=== PATIENT | male | born 1965 ===

== ENCOUNTER 2017-01-09 11:12 | Emergency (ER) | payer MEDICAID ==
[2017-01-09 11:14] VITALS: TEMP 97.7
[2017-01-09 11:15] VITALS: BMI 29.6
[2017-01-09 11:22] VITALS: BP 116/86; PULSE 62; RESP 16; O2SAT 98
[2017-01-09] MEDS ORDERED: Sodium Chloride 0.9% 1,000 ML IV STA ×2 (11:29→14:20)
--- NOTE | 2017-01-09 11:33 | ED PDOC ---
HPI: General Adult Time Seen by Provider: 01/09/17 11:20 Chief Complaint (Nursing): GI Problem History Per: Patient Additional Complaint(s): Pt. states he woke up this morning feeling dizzy and weak. Pt. had 1 episode of non-bloody vomiting. Pt. was seen in [facility] and was subsequently sent to ED as his BS was elevated and he had ketones in his urine. Pt. states he is compliant with his DM meds and reports he is not insulin dependent. Denies SOB, numbness, tingling, chest pain, SOB, abdominal pain. Of note, pt. states he had 2 episodes of non-bloody watery diarrhea today but reports this has been on going for the past 6 months. Against Medical Advice - AMA Patient Left Against Medical Advice: The patient declines admission to the hospital and wishes to leave the Emergency Department. This action is against my medical advice. This decision was made with informed refusal. The patient was told that admission to the hospital is necessary. Explanation of the reasons why were discussed. The risks of leaving were explained to the patient and include, but are not limited to, worsening of known or currently unknown conditions, permanent disability and from undiagnosed or untreated conditions. The patient has the capacity to make this informed decision and understands my explanation of the current medical problem and risks of leaving. The patient voluntarily accepts these risks and signed an AMA form documenting our conversation. The patient was given the opportunity to ask questions and reconsider. The patient was encouraged to return to the Emergency Department at any time for further care. 01/09/17 14:47 manager procurement #[id number] (Gil Esposito) to explain risks and implications of signing out AMA. Pt. states he has 5 animals to take care of at home. Pt. states he does feel slightly better. Past Medical History Vital Signs: Last Vital Signs Temp 97.7 F 01/09/17 11:19 Pulse 62 01/09/17 11:19 Resp 16 01/09/17 11:19 BP 116/86 01/09/17 11:19 Pulse Ox 98 01/09/17 14:47 - Medical History PMH: Depression, Diabetes, Fibromyalgia, HTN, Hypercholesterolemia Denies: Chronic Kidney Disease - Surgical History Surgical History: Cholecystectomy - Family History Family History: States: No Known Family Hx - Home Medications Home Medications: Ambulatory Orders Medication Instructions Recorded Baclofen [Lioresal] 10 mg PO BID 09/06/15 Gabapentin [Neurontin] 600 mg PO QID 09/06/15 GlipiZIDE [Glucotrol] 5 mg PO DAILY 09/06/15 MetFORMIN [glucOPHAGE] 1,000 mg PO BID 09/06/15 Omeprazole [Prilosec] 20 mg PO DAILY 09/06/15 Paroxetine HCl [Paxil] 40 mg PO DAILY 09/06/15 Simvastatin [Zocor] 40 mg PO DAILY 09/06/15 Aspirin [Ecotrin] 81 mg PO DAILY 01/09/17 Bupropion HCl [Wellbutrin Sr] 100 mg PO DAILY 01/09/17 Doxepin [Sinequan] 50 mg PO HS 01/09/17 Enalapril Maleate [Vasotec] 10 mg PO DAILY 01/09/17 Meloxicam [Mobic] 15 mg PO DAILY PRN 01/09/17 [place]-3 Fatty Acids/Fish Oil [Fish 1 cap PO DAILY 01/09/17 Oil 1,000 mg Capsule] Risperidone [Risperdal] 3 mg PO DAILY 01/09/17 Zolpidem [Ambien] 10 mg PO HS PRN 01/09/17 - Allergies Allergies/Adverse Reactions: Allergies Allergy/AdvReac Type Severity Reaction Status Date / Time No Known Allergies Allergy Verified 01/09/17 11:19 Review of Systems ROS Statement: Except As Marked, All Systems Reviewed And Found Negative Neurological: Positive for: Weakness Physical Exam - Reviewed Nursing Documentation Reviewed: Yes Vital Signs Reviewed: Yes - Physical Exam Appears: Positive for: Well, Non-toxic, No Acute Distress Head Exam: Positive for: ATRAUMATIC, NORMAL INSPECTION, NORMOCEPHALIC Skin: Positive for: Normal Color, Warm. Negative for: Rash Eye Exam: Positive for: EOMI, Normal appearance, PERRL ENT: Positive for: Normal ENT Inspection Neck: Positive for: Normal, Painless ROM Cardiovascular/Chest: Positive for: Regular Rate, Rhythm Respiratory: Positive for: CNT, Normal Breath Sounds Gastrointestinal/Abdominal: Positive for: Normal Exam, Bowel Sounds, Soft. Negative for: Tenderness Back: Positive for: Normal Inspection Extremity: Positive for: Normal ROM Neurologic/Psych: Positive for: Alert, Oriented, Other (equal activity director strength b/l) . Negative for: Motor/Sensory Deficits, Aphasia, Facial Droop - Laboratory Results Result Diagrams: 01/09/17 11:55 01/09/17 11:55 - ECG ECG: Positive for: Interpreted By Me ECG Rhythm: Positive for: Sinus Rhythm Rate: 62 O2 Sat by Pulse Oximetry: 98 - Radiology X-Ray: Read By Radiologist (CXR) X-Ray Interpretation: No Acute Disease - CT Scan/US CT head w/o contrast Other Rad Studies (CT/US): Radiology Report Reviewed (negative) - Progress ED Course And Treament: Labs ordered. IV NS bolus x [address] head w/o contrast ordered. FSBS: [id number] FSBS: 282 Disposition - Clinical Impression Clinical Impression: Left against medical advice, Hyperglycemia, Ketonuria - Patient ED Disposition Is Patient to be Admitted: No - Disposition Referrals: [facility] [Outside] [facility] [Outside] Disposition: Against Medical Advice Disposition Time: 14:45 Condition: GUARDED Additional Instructions: RETURN TO ED IMMEDIATELY IF SYMPTOMS PERSIST OR WORSEN. Instructions: Acute Nausea and Vomiting (ED), Against Medical Advice (ED), Diabetic Hyperglycemia (ED) Forms: [facility] (Dutch) Print Language: ERITREAN
--- NOTE | 2017-01-09 12:01 | RAD ---
HISTORY: weakness COMPARISON: None available TECHNIQUE: Chest, one view. FINDINGS: Examination limited by habitus. LUNGS: No focal consolidation. Please note that chest x-ray has limited sensitivity for the detection of pulmonary masses. PLEURA: No significant pleural effusion identified. No definite pneumothorax . CARDIOVASCULAR: The cardiomediastinal silhouette appears within normal limits of size. OSSEOUS STRUCTURES: No acute osseous abnormality identified. VISUALIZED UPPER ABDOMEN: Unremarkable. OTHER FINDINGS: None. IMPRESSION: No focal consolidation, significant pleural effusion, or definite pneumothorax identified.
[2017-01-09 12:04] LABS: BASO % 0.4 % (0.0-2.0); EOS # 0.1 K/uL (0.0-0.7); EOS % 0.7 % (0.0-4.0); HEMATOCRIT 46.3 % (35.0-51.0); LYMPH % 8.9 % (20.0-40.0); MEAN CELL VOLUME 96.1 fl (80.0-94.0); MEAN CORPUSCULAR HEMOGLOBIN 32.2 pg (27.0-31.0); MEAN CORPUSCULAR HGB CONC 33.5 g/dL (33.0-37.0); MEAN PLATELET VOLUME 9.3 fl (7.2-11.7); MONO # 0.5 K/uL (0.0-0.8); MONO % 4.6 % (0.0-10.0); NEUT # 9.4 K/uL (1.8-7.0); NEUT % 85.4 % (50.0-75.0); NRBC % 0.1 % (0.0-0.0); PLATELET COUNT 237 K/uL (130-400); RED CELL DISTRIBUTION WIDTH 12.6 % (11.5-14.5)
[2017-01-09 12:20] LABS: ALB/GLOB RATIO 1.7 (1.0-2.1); ALKALINE PHOSPHATASE 81 U/L (38-126); ALT/SGPT 44 U/L (21-72); AST/SGOT 19 U/L (17-59); BLOOD UREA NITROGEN 20 mg/dl (9-20); CALCIUM 9.3 mg/dL (8.4-10.2); CARBON DIOXIDE 23 mmol/L (22-30); CHLORIDE 100 mmol/L (98-107); GFR AFRICAN-AMERICAN > 60; GLUCOSE,RANDOM 309 mg/dL (75-110); POTASSIUM 4.3 MMOL/L (3.6-5.0); SODIUM 136 mmol/l (132-148); TOTAL PROTEIN 7.3 G/DL (6.3-8.2)
[2017-01-09 12:41] LABS: NEUTROPHIL 82 % (42-75); TOTAL CELLS COUNTED 100
[2017-01-09 12:48] LABS: VENOUS BLOOD GAS BASE EXCESS 1.5 mmol/L (0.0-2.0); VENOUS BLOOD GAS PCO2 43 mmHg (40-60)
--- NOTE | 2017-01-09 13:01 | CT ---
PROCEDURE: CT HEAD WITHOUT CONTRAST. HISTORY: dizziness COMPARISON: None available. TECHNIQUE: Axial computed tomography images were obtained through the head/brain without intravenous contrast. Radiation dose: Total exam DLP = 803.65 mGy-cm. This CT exam was performed using one or more of the following dose reduction techniques: Automated exposure control, adjustment of the mA and/or kV according to patient size, and/or use of iterative reconstruction technique. FINDINGS: HEMORRHAGE: No intracranial hemorrhage. BRAIN: No mass effect or edema. The smith-white matter differentiation appears intact. Please note that MRI with diffusion imaging is more sensitive in the detection of acute ischemic event. VENTRICLES: No hydrocephalus. CALVARIUM: Unremarkable. PARANASAL SINUSES: Unremarkable as visualized. No significant inflammatory changes. MASTOID AIR CELLS: Unremarkable as visualized. No inflammatory changes. OTHER FINDINGS: None. IMPRESSION: No acute intracranial pathology identified.
[2017-01-09 13:21] LABS: RBC URINE 2 /hpf (0-3); URINE BILIRUBIN NEGATIVE (NEGATIVE); URINE BLOOD NEGATIVE (NEGATIVE); URINE COLOR YELLOW (YELLOW); URINE GLUCOSE (UA) >=500 mg/dL (Normal); URINE KETONE 20 mg/dL (NEGATIVE); URINE LEUKOCYTE ESTERASE NEG Leu/uL (Negative); URINE PROTEIN NEGATIVE (NEGATIVE); URINE UROBILINOGEN 0.2-1.0 mg/dL (0.2-1.0); WBC URINE 1 /hpf (0-5)
--- NOTE | 2017-01-09 17:40 | CARD ---
APPROVED REPORT EKG Measurement Heart [id number] CO [id number] <Conclusion> Normal sinus rhythm Left axis deviation Minimal voltage criteria for LVH, may be normal variant Abnormal ECG
== END 2017-01-09 14:54 | disposition left against medical advice (07) ==
LOC: H.ER 11:12
DX: E11.65 Type 2 diabetes mellitus with hyperglycemia (principal); R82.4 Acetonuria; E78.00 Pure hypercholesterolemia, unspecified; F32.9 Major depressive disorder, single episode, unspecified; I10 Essential (primary) hypertension; M79.7 Fibromyalgia; Z79.82 Long term (current) use of aspirin; Z79.84 Long term (current) use of oral hypoglycemic drugs

== ENCOUNTER 2017-09-24 16:33 | Emergency (ER) | payer MEDICAID ==
[2017-09-24 16:33] VITALS: BMI 29.6
[2017-09-24 16:58] VITALS: O2SAT 99
--- NOTE | 2017-09-24 17:20 | ED PDOC ---
HPI: General Adult Time Seen by Provider: 09/24/17 17:17 Chief Complaint (Nursing): Abnormal Skin Integrity Chief Complaint (Provider): abd pain History Per: Patient Additional Complaint(s): 52-year-old male with history of diabetes, hypertension and high cholesterol presents to emergency department with painful umbilicus region of abdomen 2 days. Patient was seen at clinic today and was referred to emergency room for further evaluation. Patient has had purulent discharge from umbilical region but denies fever or chills. He rates pain as a 7 out of 10. No associated nausea , vomiting, diarrhea or constipation. PMD: Dr. Escoto Past Medical History Reviewed: Historical Data, Nursing Documentation, Vital Signs Vital Signs: Last Vital Signs Temp 98.3 F 09/24/17 16:56 Pulse 68 09/24/17 16:56 Resp 18 09/24/17 16:56 BP 109/69 09/24/17 16:56 Pulse Ox 99 09/24/17 19:29 - Medical History PMH: Depression, Diabetes, Fibromyalgia, HTN, Hypercholesterolemia - Surgical History Surgical History: Cholecystectomy - Family History Family History: States: No Known Family Hx - Living Arrangements Living Arrangements: With Family - Social History Current smoker - smoking cessation education provided: No Alcohol: None Drugs: Denies - Home Medications Home Medications: Ambulatory Orders Medication Instructions Recorded Baclofen [Lioresal] 10 mg PO BID 09/06/15 Gabapentin [Neurontin] 600 mg PO QID 09/06/15 GlipiZIDE [Glucotrol] 5 mg PO DAILY 09/06/15 MetFORMIN [glucOPHAGE] 1,000 mg PO BID 09/06/15 Omeprazole [Prilosec] 20 mg PO DAILY 09/06/15 Paroxetine HCl [Paxil] 40 mg PO DAILY 09/06/15 Simvastatin [Zocor] 40 mg PO DAILY 09/06/15 Aspirin [Ecotrin] 81 mg PO DAILY 01/09/17 Bupropion HCl [Wellbutrin Sr] 100 mg PO DAILY 01/09/17 Doxepin [Sinequan] 50 mg PO HS 01/09/17 Enalapril Maleate [Vasotec] 10 mg PO DAILY 01/09/17 Meloxicam [Mobic] 15 mg PO DAILY PRN 01/09/17 [place]-3 Fatty Acids/Fish Oil [Fish 1 cap PO DAILY 01/09/17 Oil 1,000 mg Capsule] Risperidone [Risperdal] 3 mg PO DAILY 01/09/17 Zolpidem [Ambien] 10 mg PO HS PRN 01/09/17 - Allergies Allergies/Adverse Reactions: Allergies Allergy/AdvReac Type Severity Reaction Status Date / Time No Known Allergies Allergy Verified 01/09/17 11:19 Review of Systems ROS Statement: Except As Marked, All Systems Reviewed And Found Negative Constitutional: Negative for: Fever, Chills Cardiovascular: Negative for: Chest Pain Respiratory: Negative for: Cough Gastrointestinal: Positive for: Abdominal Pain (purulent discharge from umbilical region). Negative for: Nausea, Vomiting, Diarrhea, Constipation, Melena, Hematochezia, Hematemesis, Rectal Pain Genitourinary Male: Negative for: Dysuria Physical Exam - Reviewed Nursing Documentation Reviewed: Yes Vital Signs Reviewed: Yes - Physical Exam Appears: Positive for: Well, Non-toxic, No Acute Distress Skin: Negative for: Rash Eye Exam: Positive for: Normal appearance Cardiovascular/Chest: Positive for: Regular Rate, Rhythm Respiratory: Positive for: Normal Breath Sounds Gastrointestinal/Abdominal: Positive for: Tenderness (to umbilical region), Other (Erythema noted to umbilical region, no active drainage noted). Negative for: Distended, Guarding, Rebound Back: Negative for: L CVA Tenderness, R CVA Tenderness Extremity: Positive for: Normal ROM Neurologic/Psych: Positive for: Alert, Oriented - Laboratory Results Result Diagrams: 09/24/17 18:05 09/24/17 18:05 Urine dip results: Negative for: Leukocyte Esterase, Blood, Nitrate, Ketones, Glucose, Bilirubin, Protein - ECG O2 Sat by Pulse Oximetry: 99 Pulse Ox Interpretation: Normal Medical Decision Making Medical Decision Makin52 year old with umbilical pain and discharge, sent by clinic to ED Plan: CBC CMP Urine dip Blood cultures IVF CT abd and pelvis with IV contrast Pain meds declined Disposition - Clinical Impression Clinical Impression: Umbilical pain - Patient ED Disposition Is Patient to be Admitted: Transfer of Care - Disposition Disposition: Transfer of Care Disposition Time: 20:00 Condition: STABLE Forms: [facility] (Welsh) Patient Signed Over To: Geno Kelly Handoff Comments: Pending CT and final disposition Results - Lab Results Lab Results: 09/24/17 09/24/17 18:05 18:05 WBC 7.5 RBC 4.59 Hgb 14.9 Hct 44.3 MCV 96.6 H MCH 32.5 H MCHC 33.6 RDW 12.5 Plt Count 232 MPV 9.4 Neut % (Auto) 62.3 Lymph % (Auto) 27.4 [place] % (Auto) 6.7 Eos % (Auto) 2.6 Baso % (Auto) 1.0 Neut # (Auto) 4.7 Lymph # (Auto) 2.0 [place] # (Auto) 0.5 Eos # (Auto) 0.2 Baso # (Auto) 0.1 Sodium 141 Potassium 4.3 Chloride 99 Carbon Dioxide 26 Anion Gap 20 BUN 19 Creatinine 1.0 Est GFR ( Amer) > 60 Est GFR (Non-Af Amer) > 60 Random Glucose 90 Calcium 9.3 Total Bilirubin 3.1 H AST 22 ALT 36 Alkaline Phosphatase 68 Total Protein 7.7 Albumin 4.4 Globulin 3.3 Albumin/Globulin Ratio 1.4
[2017-09-24] MEDS ORDERED: Sodium Chloride 0.9% 1,000 ML IV STA (17:37)
[2017-09-24 18:14] LABS: BASO # 0.1 K/uL (0.0-0.2); EOS # 0.2 K/uL (0.0-0.7); EOS % 2.6 % (0.0-4.0); HEMOGLOBIN 14.9 g/dL (12.0-18.0); LYMPH % 27.4 % (20.0-40.0); MEAN CELL VOLUME 96.6 fl (80.0-94.0); MEAN CORPUSCULAR HEMOGLOBIN 32.5 pg (27.0-31.0); MEAN CORPUSCULAR HGB CONC 33.6 g/dL (33.0-37.0); MEAN PLATELET VOLUME 9.4 fl (7.2-11.7); MONO # 0.5 K/uL (0.0-0.8); MONO % 6.7 % (0.0-10.0); NEUT # 4.7 K/uL (1.8-7.0); NEUT % 62.3 % (50.0-75.0); NRBC % 0.1 % (0.0-0.0); RBC 4.59 Mil/uL (4.40-5.90); RED CELL DISTRIBUTION WIDTH 12.5 % (11.5-14.5); WHITE BLOOD COUNT 7.5 K/uL (4.8-10.8)
[2017-09-24 18:22] LABS: ALB/GLOB RATIO 1.4 (1.0-2.1); ALBUMIN 4.4 g/dL (3.5-5.0); ALT/SGPT 36 U/L (21-72); AST/SGOT 22 U/L (17-59); BLOOD UREA NITROGEN 19 mg/dl (9-20); CALCIUM 9.3 mg/dL (8.4-10.2); GFR AFRICAN-AMERICAN > 60; GFR NON-AFRICAN AMERICAN > 60
--- NOTE | 2017-09-24 22:42 | ED PDOC ---
- Laboratory Results Result Diagrams: 09/24/17 18:05 09/24/17 18:05 - ECG O2 Sat by Pulse Oximetry: 99 - Progress ED Course And Treament: Case endorsed to song writer from Miguel CENTENO pending CT EXAM: CT Abdomen and Pelvis With Intravenous Contrast CLINICAL HISTORY: The patient is a 52 years male; Pain; Abdominal pain; Periumbilical; Prior surgery; Surgery date: 6+ months; Surgery type: Cholecystectomy; Patient HX: Discharge from umbilical; Additional info: Pain and drainage from periumbilical region 09/24/2017 5:37 PM TECHNIQUE: Axial computed tomography images of the abdomen and pelvis with intravenous contrast. All CT scans at this facility use one or more dose reduction techniques, viz.: automated exposure control; ma/kV adjustment per patient size (including targeted exams where dose is matched to indication; i.e. head); or iterative reconstruction technique. CONTRAST: 95 mL of [id number] administered intravenously. COMPARISON: No relevant prior studies available. FINDINGS: Lung bases: No consolidation. ABDOMEN: Liver: Probable hepatic steatosis. Gallbladder and bile ducts: Cholecystectomy clips. No ductal dilation. Pancreas: Unremarkable. No ductal dilation. Spleen: Unremarkable. No splenomegaly. Adrenals: Mild bilateral adrenal thickening. Kidneys and ureters: Unremarkable. No solid mass. No hydronephrosis. Stomach and bowel: Unremarkable. No dilated bowel loops. Appendix: No findings to suggest acute appendicitis. PELVIS: Bladder: Unremarkable. Reproductive: Unremarkable as visualized. ABDOMEN and PELVIS: Intraperitoneal space: Unremarkable. No free air. No drainable fluid collection. Bones/joints: No acute fracture. No dislocation. Soft tissues: Soft tissue thickening in the periumbilical region.. Vasculature: Unremarkable. No abdominal aortic aneurysm. Lymph nodes: Unremarkable. No enlarged lymph nodes. IMPRESSION: Probable hepatic steatosis. Soft tissue thickening in the periumbilical region. Patient educated on findings, discharged with rx Clindamycin (dose given in ED) Advised patient he will be contacted for follow up appointment at clinic. Return precautions given Disposition - Clinical Impression Clinical Impression: Cellulitis, umbilical - POA Present On Arrival: None - Disposition Disposition: Routine/Home Disposition Time: 23:02 Condition: STABLE Prescriptions: Clindamycin [Cleocin] 300 mg PO TID #27 cap Instructions: Cellulitis and Erysipelas (Skin Infections) Forms: [facility] (Danish) Print Language: LATVIAN
[2017-09-24 23:51] VITALS: BP 122/71; PULSE 76; RESP 18; TEMP 98
--- NOTE | 2017-09-25 09:04 | CT ---
PROCEDURE: CT Abdomen and Pelvis with contrast HISTORY: Abdominal pain and drainage from periumbilical region COMPARISON: None. TECHNIQUE: Contrast dose: 95 cc Omnipaque 300 Radiation dose: Total exam DLP = 770.41 mGy-cm. This CT exam was performed using one or more of the following dose reduction techniques: Automated exposure control, adjustment of the mA and/or kV according to patient size, and/or use of iterative reconstruction technique. FINDINGS: LOWER THORAX: Unremarkable. LIVER: Hepatic steatosis. No focal masses. No intrahepatic bile duct dilatation or perihepatic ascites. Hepatomegaly GALLBLADDER AND BILE DUCTS: Status post cholecystectomy. No abnormality is seen in the gallbladder fossa. PANCREAS: Unremarkable. No gross lesion or ductal dilatation. SPLEEN: Unremarkable. ADRENALS: Unremarkable. No mass. KIDNEYS AND URETERS: Unremarkable. No hydronephrosis. No solid mass. VASCULATURE: Unremarkable. No aortic aneurysm. BOWEL: Constipation without fecal impaction or obstruction. APPENDIX: Normal appendix. PERITONEUM: Unremarkable. No free fluid. No free air. LYMPH NODES: Unremarkable. No enlarged lymph nodes. BLADDER: Unremarkable. REPRODUCTIVE: Unremarkable. BONES: No acute fracture. OTHER FINDINGS: None. IMPRESSION: No significant or acute findings to account for/ related to the clinical presentation. Additional benign and/or incidental findings described above. Concordant results (preliminary interpretation) provided by [facility]. Procedure Completed: 19:45 Preliminary ([facility]) Report: Dictated and Authenticated: 20:49 Final Interpretation: 09:03 September 25, 2017.
== END 2017-09-24 23:26 | disposition home or self-care (01) ==
LOC: H.ER 16:33
DX: L03.316 Cellulitis of umbilicus (principal); R10.33 Periumbilical pain; E11.9 Type 2 diabetes mellitus without complications; E78.00 Pure hypercholesterolemia, unspecified; I10 Essential (primary) hypertension; M79.7 Fibromyalgia; Z79.82 Long term (current) use of aspirin; Z79.84 Long term (current) use of oral hypoglycemic drugs; Z90.49 Acquired absence of other specified parts of digestive tract; F32.9 Major depressive disorder, single episode, unspecified
CPT/HCPCS: 74177; 80053; 85025; 87040; 96360; 99284; J7040

== ENCOUNTER 2018-05-14 16:05 | Emergency (ER) | payer MEDICAID ==
[2018-05-14 16:05] VITALS: BMI 29.6
[2018-05-14 16:18] VITALS: BP 122/69; PULSE 56; RESP 16; TEMP 97.4; O2SAT 97
[2018-05-14] MEDS ORDERED: Naproxen 500 MG TAB PO STA (16:28)
--- NOTE | 2018-05-14 17:00 | ED PDOC ---
Upper Extremity Pain/Injury Time Seen by Provider: 05/14/18 16:21 Chief Complaint (Nursing): Upper Extremity Problem/Injury Chief Complaint (Provider): Left Elbow and Shoulder Pain S/P Fall History Per: Patient, Layout Inspector (#[id number]) History/Exam Limitations: no limitations Onset/Duration Of Symptoms: Days (x1 week) Current Symptoms Are (Timing): Still Present Additional Complaint(s): 53 year old male presents to the ED for evaluation of left elbow and shoulder pain, greater in the elbow, s/p falling onto them one week ago after slipping. Initially, he notes there was swelling which has since resolved, but the persistent pain prompted the visit. Otherwise denies numbness, tingling, chest pain, head injury, and loss of consciousness. PMD: [facility] Past Medical History Reviewed: Historical Data, Nursing Documentation, Vital Signs Vital Signs: Last Vital Signs Temp 97.4 F L 05/14/18 16:15 Pulse 56 L 05/14/18 16:15 Resp 16 05/14/18 16:15 BP 122/69 05/14/18 16:15 Pulse Ox 97 05/14/18 16:15 - Medical History PMH: Depression, Diabetes, Fibromyalgia, HTN, Hypercholesterolemia Denies: Chronic Kidney Disease - Surgical History Surgical History: Cholecystectomy - Family History Family History: States: Unknown Family Hx - Social History Current smoker - smoking cessation education provided: No Alcohol: None Drugs: Denies - Home Medications Home Medications: Ambulatory Orders Medication Instructions Recorded GlipiZIDE [Glucotrol] 5 mg PO DAILY 09/06/15 MetFORMIN [glucOPHAGE] 1,000 mg PO BID 09/06/15 Omeprazole [Prilosec] 20 mg PO DAILY 09/06/15 Paroxetine HCl [Paxil] 40 mg PO DAILY 09/06/15 RX: Baclofen [Lioresal] 10 mg PO BID 09/06/15 RX: Gabapentin [Neurontin] 600 mg PO QID 09/06/15 Simvastatin [Zocor] 40 mg PO DAILY 09/06/15 Bupropion HCl [Wellbutrin Sr] 100 mg PO DAILY 01/09/17 Meloxicam [Mobic] 15 mg PO DAILY PRN 01/09/17 [place]-3 Fatty Acids/Fish Oil [Fish 1 cap PO DAILY 01/09/17 Oil 1,000 mg Capsule] RX: Aspirin [Ecotrin] 81 mg PO DAILY 01/09/17 RX: Doxepin [Sinequan] 50 mg PO HS 01/09/17 RX: Enalapril Maleate [Vasotec] 10 mg PO DAILY 01/09/17 Risperidone [Risperdal] 3 mg PO DAILY 01/09/17 Zolpidem [Ambien] 10 mg PO HS PRN 01/09/17 RX: Clindamycin [Cleocin] 300 mg PO TID #27 cap 09/24/17 Tramadol HCl [Ultram] 50 mg PO BID PRN #10 tablet 05/14/18 - Allergies Allergies/Adverse Reactions: Allergies Allergy/AdvReac Type Severity Reaction Status Date / Time No Known Allergies Allergy Verified 05/14/18 16:14 Review of Systems ROS Statement: Except As Marked, All Systems Reviewed And Found Negative Cardiovascular: Negative for: Chest Pain Musculoskeletal: Positive for: Shoulder Pain (left), Other (left elbow pain) Neurological: Negative for: Numbness (or tingling), Other (loss of consciousness) Physical Exam - Reviewed Nursing Documentation Reviewed: Yes Vital Signs Reviewed: Yes - Physical Exam Appears: Positive for: No Acute Distress Pulses-Radial (L): 2+ Pulses-Radial (R): 2+ Extremity: Positive for: Tenderness (and swelling to left elbow). Negative for: Normal ROM (limited ROM in left elbow secondary to pain), Deformity (to left elbow or shoulder), Other (tenderness and swelling to left shoulder) - ECG O2 Sat by Pulse Oximetry: 97 (RA) Pulse Ox Interpretation: Normal Medical Decision Making Medical Decision Making: Time: 1628 Initial Impression: pain s/p fall Initial Plan: --Naproxen 500mg PO --Left elbow XR --Left shoulder XR 1741 Shoulder XR FINDINGS: BONES: Bone alignment and mineralization are normal. There is no acute displaced fracture or bone destruction. 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 The glenohumeral joint is normal. SOFT TISSUES: Normal. OTHER FINDINGS: None. IMPRESSION: No acute fracture or dislocation. 1741 Elbow XR FINDINGS: BONES: There is an acute nondisplaced intra-articular fracture in the head of the radius. JOINTS: Normal. No osteoarthritis. SOFT TISSUES: Normal. JOINT EFFUSION: Large joint effusion. OTHER FINDINGS: None IMPRESSION: Acute nondisplaced intra-articular fracture in the head of the radius. Large joint effusion. 1800 Case d/w Dr. Weber who agrees with plan and care. Patient informed of results and plan using site interpreter #[id number]. Verbalized understanding of correct plan and care. Scribe Attestation: Documented by Grace Adamson, acting as a scribe for Ramon Dillard PA-C Provider Scribe Attestation: All medical record entries made by the Scribe were at my direction and personally dictated by me. I have reviewed the chart and agree that the record accurately reflects my personal performance of the history, physical exam, medical decision making, and the department course for this patient. I have also personally directed, reviewed, and agree with the discharge instructions and disposition. Procedures - Time-Out Type of Procedure: Splinting Site of Procedure: L arm Correct Patient: Yes Correct Procedure: Yes Correct Site Marked: Yes X-Ray Marked: Yes PA/Tech: Gilma CENTENO - Splinting Location: L arm Hand-Made Type: orthoglass Splint: posterior elbow splint Pre-Proc Neuro Vasc Exam: normal Post-Proc Neuro Vasc Exam: normal Progress: Sling applied Disposition - Clinical Impression Clinical Impression: Elbow fracture - Patient ED Disposition Is Patient to be Admitted: No - Disposition Referrals: [facility] [Outside] [facility] [Outside] Peyman Clarke MD [Staff Provider] - Disposition: Routine/Home Disposition Time: 18:15 Condition: STABLE Additional Instructions: FOLLOW UP WITH DR. CLARKE OR ANOTHER ORTHOPEDIST FOR FOR FURTHER EVALUATION RETURN TO ED IMMEDIATELY IF SYMPTOMS WORSEN EVELIO AVALOS, thank you for letting us take care of you today. Your provider was Navi Klein III, DO and you were treated for FALL: LT SIDE PAIN. The emergency medical care you received today was directed at your acute symptoms. If you were prescribed any medication, please fill it and take as directed. It may take several days for your symptoms to resolve. Return to the Emergency Department if your symptoms worsen, do not improve, or if you have any other problems. Please contact your doctor or call one of the physicians/clinics you have been referred to that are listed on the Patient Visit Information form that is included in your discharge packet. Bring any paperwork you were given at discharge with you along with any medications you are taking to your follow up visit. Our treatment cannot replace ongoing medical care by a primary care provider outside of the emergency department. Thank you for allowing the [facility] team to be part of your care today. If you had an X-Ray or CT scan: A Radiologist will review the ED reading if any change in treatment is needed we will contact you. If you had a blood, urine, or wound culture: It will take several days for the results, if any change in treatment is needed we will contact you. If you had an STI test: It will take 48 hours for the results. Please call after 1 week if you have not heard back. Prescriptions: Tramadol HCl [Ultram] 50 mg PO BID PRN #10 tablet PRN Reason: Other Instructions: Elbow Fracture (DC) Forms: [employer] (C[place] Rican) Print Language: NEPALI
--- NOTE | 2018-05-14 17:46 | RAD ---
Date of service: 05/14/2018 PROCEDURE: Radiographs of the left shoulder joint HISTORY: trauma COMPARISON: 10/26/2013. FINDINGS: BONES: Bone alignment and mineralization are normal. There is no acute displaced fracture or bone destruction. 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 The glenohumeral joint is normal. SOFT TISSUES: Normal. OTHER FINDINGS: None. IMPRESSION: No acute fracture or dislocation.
--- NOTE | 2018-05-14 17:48 | RAD ---
Date of service: 05/14/2018 PROCEDURE: Radiographs of the left elbow. HISTORY: trauma COMPARISON: No prior. FINDINGS: BONES: There is an acute nondisplaced intra-articular fracture in the head of the radius. JOINTS: Normal. No osteoarthritis. SOFT TISSUES: Normal. JOINT EFFUSION: Large joint effusion. OTHER FINDINGS: None IMPRESSION: Acute nondisplaced intra-articular fracture in the head of the radius. Large joint effusion. This study has been tagged to the PA review folder and ER physician note.
== END 2018-05-14 19:12 | disposition home or self-care (01) ==
LOC: H.ER 16:05
DX: S52.125A Nondisplaced fracture of head of left radius, initial encounter for closed fracture (principal); M25.512 Pain in left shoulder; W19.XXXA Unspecified fall, initial encounter; Y92.89 Other specified places as the place of occurrence of the external cause; F32.9 Major depressive disorder, single episode, unspecified; I10 Essential (primary) hypertension; M79.7 Fibromyalgia; E78.00 Pure hypercholesterolemia, unspecified; E11.9 Type 2 diabetes mellitus without complications; Z79.84 Long term (current) use of oral hypoglycemic drugs